=== PATIENT | male | born 1940 | race Caucasian/White ===

== ENCOUNTER → 2017-03-18 | Outpatient (CLI) | payer OTHER | LOC: CIMAGING 16:21 | PROVIDERS: ATTEND Internal Medicine | DX: M54.5 Low back pain (principal); Z85.3 Personal history of malignant neoplasm of breast | CPT/HCPCS: 72100-PO ==

== ENCOUNTER → 2017-11-26 | Outpatient (CLI) | payer OTHER | LOC: CIMAGING 11:45 | PROVIDERS: ATTEND Internal Medicine | DX: M25.561 Pain in right knee (principal); M25.861 Other specified joint disorders, right knee; M25.461 Effusion, right knee; Z96.651 Presence of right artificial knee joint ==

== ENCOUNTER → 2018-01-10 | Outpatient (CLI) | payer OTHER | LOC: CIMAGING 14:49 | PROVIDERS: ATTEND Internal Medicine | DX: N28.1 Cyst of kidney, acquired (principal); I77.811 Abdominal aortic ectasia; Z90.5 Acquired absence of kidney | CPT/HCPCS: 76770-PO ==

== ENCOUNTER → 2018-01-16 | Outpatient (CLI) | payer OTHER | LOC: CIMAGING 16:03 | PROVIDERS: ATTEND Internal Medicine | DX: R10.32 Left lower quadrant pain (principal); Z87.442 Personal history of urinary calculi; Z90.5 Acquired absence of kidney | CPT/HCPCS: 74176-PO ==

== ENCOUNTER → 2018-04-03 | Outpatient (CLI) | payer OTHER | LOC: CLAB 14:34 → EDSTATUS 14:35 → CIMAGING 14:36 | PROVIDERS: ATTEND Internal Medicine | DX: R91.8 Other nonspecific abnormal finding of lung field (principal); C50.929 Malignant neoplasm of unspecified site of unspecified male breast | CPT/HCPCS: 71046-PO ==

== ENCOUNTER → 2018-07-07 | Outpatient (CLI) | payer OTHER | LOC: CLAB 16:03 → CIMAGING 16:05 → EDSTATUS 16:05 | PROVIDERS: ATTEND Internal Medicine | DX: M19.042 Primary osteoarthritis, left hand (principal) | CPT/HCPCS: 73140-PO ==